=== PATIENT | female | born 1990 | race Two or more races ===

== ENCOUNTER 2019-03-27 02:10 | Emergency (ER) | payer MEDICAID, OTHER ==
[~2019-03-27] VITALS: Ht 170.2 cm; Wt 68.0 kg
--- NOTE | 2019-03-27 02:20 | NUR ---
PT [id number] FOR ETOH/LYING ON THE GROUND IN FRONT OF [employer] STATION. PT AXO2. RESPIRATIONS EVEN AND UNLABORED. 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 PENDING EVAL FROM SHARATH TAYLOR.
--- NOTE | 2019-03-27 02:55 | NUR ---
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 LABS DRAWN AND SENT.
[2019-03-27 03:09] LABS: BASOPHILS % (AUTO) 0.4 % (0.0-2.0); EOSINOPHILS % (AUTO) 1.9 % (0.0-6.0); HEMATOCRIT 43 % (33-45); HEMOGLOBIN 14.8 g/dL (11.5-14.8); LYMPHOCYTES # (AUTO) 1.8 /CMM (0.8-4.8); LYMPHOCYTES % (AUTO) 35.7 % (20.0-44.0); MEAN CORPUSCULAR HGB CONC 34 g/dl (31.0-36.0); MEAN CORPUSCULAR VOLUME 88 fL (82-100); MONOCYTES # (AUTO) 0.4 /CMM (0.1-1.30); NEUTROPHILS # (AUTO) 2.8 /CMM (1.8-8.9); PLATELET COUNT (AUTO) 200 /CMM (150-450); RED BLOOD CELL COUNT(AUTO) 4.89 MIL/uL (4.0-5.2); WHITE BLOOD COUNT (AUTO) 5.2 K/uL (4.3-11.0)
--- NOTE | 2019-03-27 03:10 | NUR ---
URINE SAMPLE OBTAINED AND SENT TO LAB.
[2019-03-27 03:13] LABS: CALCIUM, SERUM 8.5 mg/dL (8.5-10.1); CREATININE 0.8 mg/dL (0.6-1.3); POTASSIUM 3.9 mmol/L (3.5-5.1)
[2019-03-27 03:16] LABS: APPEARANCE,URINE Clear (CLEAR); BILIRUBIN,URINE Negative (NEGATIVE); BLOOD, URINE Trace-intact Ery/uL (NEGATIVE); COLOR,URINE Yellow (YELLOW); KETONES,URINE Negative (NEGATIVE); LEUKOCYTE ESTERASE ,URINE Negative (NEGATIVE); NITRITE, URINE Negative (NEGATIVE); PH,URINE 5.5 (5.0-8.0); PROTEIN,URINE Negative (NEGATIVE); UGLUCOSE Negative (NEGATIVE); UROBILINOGEN,URINE 0.2 EU/dL (0.2)
[2019-03-27 03:18] LABS: ALBUMIN 4.3 g/dL (3.4-5.0); BILIRUBIN,DIRECT 0.1 mg/dL (0.0-0.2); BILIRUBIN,TOTAL 0.3 mg/dL (0.2-1.0); TOTAL PROTEIN, SERUM 8.2 g/dL (6.4-8.2)
[2019-03-27 03:19] LABS: SALICYLATE 0.8 mg/dL (2.8-20.0)
[2019-03-27 03:34] LABS: BACTERIA,URINE None seen /HPF (None Seen); RBC,URINE 0-2 /HPF (0-2); WBC,URINE 0-2 /HPF (0-3)
[2019-03-27 03:35] LABS: SQUAMOUS EPITHELIAL CELL,UR Moderate /HPF (None Seen)
--- NOTE | 2019-03-27 04:10 | NUR ---
PT RESTING IN BED, NAD NOTED. WILL CONTINUE TO MONITOR.
--- NOTE | 2019-03-27 06:25 | NUR ---
Patient discharged to home in stable condition. Written and verbal after care instructions given. Patient verbalizes understanding of instruction. Pt AXO4. Respirations even and unlabored. Pt ambulatory with steady gait.
[2019-03-27 06:27] VITALS: BP 133/70
== END 2019-03-27 06:29 | disposition home or self-care (01) ==
LOC: ER 02:11
DX: F10.129 Alcohol abuse with intoxication, unspecified (principal); Y90.8 Blood alcohol level of 240 mg/100 ml or more
CPT/HCPCS: 36415; 80048; 80076; 80305; 80307; 80329; 81001; 85025; 99283; G0480; 81000-TC